=== PATIENT | female | born 1995 | race Hispanic/Latino ===

== ENCOUNTER 2020-04-12 | Emergency (ER) | payer SELFPAY ==
--- NOTE | 2020-04-12 12:38 | ER ---
Nurse's Notes [facility] Name: Kira Askew Age: 25 yrs Sex: Female : 1995 Arrival Date: 04/12/2020 Time: 11:50 Bed 23 Private MD: Diagnosis: Disorder of teeth and supporting structures, unspecified Presentation: 04/12 12:01 Chief complaint: Patient states: R jaw and ear pain since last night. Radiates into R ll1 head. No fever. Coronavirus screen: Client denies travel out of the [place] in the last 14 days. At this time, the client does not indicate any symptoms associated with coronavirus-19. Ebola Screen: Patient denies travel to an Ebola-affected area in the 21 days before illness onset. Initial Sepsis Screen: Does the patient meet any 2 criteria? No. Patient's initial sepsis screen is negative. Does the patient have a suspected source of infection? No. Patient's initial sepsis screen is negative. Risk Assessment: Do you want to hurt yourself or someone else? Patient reports no desire to harm self or others. Onset of symptoms was April 11, 2020. 12:01 Method Of Arrival: Ambulatory ll1 12:01 Acuity: MAYLIN 4 ll1 Historical: - Allergies: 12:01 Ceclor; ll1 - PMHx: 12:01 Asthma; ll1 - PSHx: 12:01 Appendectomy; ll1 - Immunization history:: Flu vaccine is not up to date. - Social history:: Smoking status: Patient denies any tobacco usage or history of. Screenin:06 Abuse screen: Denies threats or abuse. Denies injuries from another. Nutritional sv screening: No deficits noted. Tuberculosis screening: No symptoms or risk factors identified. Fall Risk None identified. Assessment: 12:15 General: Appears in no apparent distress. comfortable, well developed, Behavior is sv calm, cooperative, appropriate for age. Pain: Complains of pain in right ear Pain currently is 10 out of 10 on a pain scale. Neuro: Level of Consciousness is awake, alert, obeys commands, Oriented to person, place, time, situation, Moves all extremities. Full function Gait is steady. Respiratory: Respiratory effort is even, unlabored, Respiratory pattern is regular, symmetrical. Vital Signs: 12:01 BP 134 / 95; Pulse 84; Resp 17; Temp 98.4; Pulse Ox 99% ; Weight 99.79 kg; Height 4 ft. ll1 11 in. (149.86 cm); Pain 10/10; 12:01 Body Mass Index 44.43 (99.79 kg, 149.86 cm) ll1 ED Course: 11:50 Patient arrived in ED. as 12:03 Triage completed. ll1 12:03 Arm band placed on Patient placed in an exam room, on a stretcher. ll1 12:05 Sommer Hassan RN is Primary Nurse. sv 12:06 Jasmeet Samano PA is PHCP. cp 12:06 Jasmeet Lara MD is Attending Physician. cp 12:06 Patient has correct armband on for positive identification. Bed in low position. sv 12:06 No provider procedures requiring assistance completed. Patient did not have IV access sv during this emergency room visit. 19:37 Primary Nurse role handed off by Sommer Hassan RN sv Administered Medications: No medications were administered Outcome: 12:37 Discharge ordered by MD. cp 12:50 Discharged to home ambulatory. sv 12:50 Condition: stable 12:50 Discharge instructions given to patient, Instructed on discharge instructions, follow up and referral plans. medication usage, Demonstrated understanding of instructions, follow-up care, medications, Prescriptions given X 3. 12:51 Patient left the ED. sv Signatures: Sommer Hassan, RN RN Conchita Garcia as Jasmeet Samano PA PA cp Lewis, Lynsay, RN RN ll1
--- NOTE | 2020-04-12 12:38 | EDPHYS ---
Physician Documentation [facility] Name: Kira Askew Age: 25 yrs Sex: Female : 1995 Arrival Date: 04/12/2020 Time: 11:50 Bed 23 Private MD: ED Physician Jasmeet Lara HPI: 04/12 12:30 This 25 yrs old Female presents to ER via Ambulatory with complaints of Ear cp Pain. 12:30 The patient presents with pain, that is acute, tenderness. The complaints affect the cp right ear. Onset: The symptoms/episode began/occurred last night. Associated signs and symptoms: Pertinent positives: right ear and right lower back tooth pain, Pertinent negatives: fever, rhinorrhea, sinus trouble, vomiting. Severity of symptoms: in the emergency department the symptoms are unchanged despite home interventions. Historical: - Allergies: 12: Ceclor; ll1 - PMHx: 12:01 Asthma; ll1 - PSHx: 12:01 Appendectomy; ll1 - Immunization history:: Flu vaccine is not up to date. - Social history:: Smoking status: Patient denies any tobacco usage or history of. ROS: 12:32 Eyes: Negative for injury, pain, redness, and discharge. cp 12:32 Constitutional: Negative for body aches, chills, fever, poor PO intake. 12:32 ENT: Positive for dental pain, ear pain, right lower jaw pain, Negative for drainage from ear(s), sinus congestion, sinus pain, sore throat, difficulty swallowing, difficulty handling secretions. 12:32 Respiratory: Negative for cough, shortness of breath, wheezing. 12:32 Abdomen/GI: Negative for abdominal pain, nausea, vomiting, and diarrhea. 12:32 Neuro: Positive for headache, of the right side of head, Negative for altered mental status, weakness. 12:32 All other systems are negative. Exam: 12:34 Head/Face: Normocephalic, atraumatic. cp 12:34 Constitutional: The patient appears in no acute distress, alert, awake, non-toxic, well developed, well nourished. 12:34 Eyes: Periorbital structures: appear normal, Conjunctiva: normal, no exudate, no injection, Lids and lashes: appear normal, bilaterally. 12:34 ENT: External ear(s): pain with movement, that is mild, of the pinna of right ear, Ear canal(s): are normal, clear, TM's: dullness, bilaterally, Nose: is normal, Mouth: Lips: moist, Oral mucosa: pink and intact, moist, Posterior pharynx: Airway: no evidence of obstruction, patent, Dental exam: abscess, is not appreciated, fractured teeth are noted, specifically the lower right third molar (#32), pain, that is moderate, specifically in the lower right third molar (#32), Voice: is normal. 12:34 Neck: ROM/movement: is normal, is supple, without pain, no range of motions limitations, Lymph nodes: no appreciated lymphadenopathy. Vital Signs: 12:01 BP 134 / 95; Pulse 84; Resp 17; Temp 98.4; Pulse Ox 99% ; Weight 99.79 kg; Height 4 ft. ll1 11 in. (149.86 cm); Pain 10/10; 12:01 Body Mass Index 44.43 (99.79 kg, 149.86 cm) ll1 MDM: 12:10 Patient medically screened. cp 12:36 Data reviewed: vital signs, nurses notes, and as a result, I will discharge patient. cp 12:36 Differential diagnosis: otitis media, otitis externa, acute otalgia, cerumen impaction, cp dental abscess, TMJ pain. Counseling: I had a detailed discussion with the patient and/or guardian regarding: the historical points, exam findings, and any diagnostic results supporting the discharge/admit diagnosis, the need for outpatient follow up, for definitive care, a dentist. Administered Medications: No medications were administered Disposition: 04/12/20 12:37 Discharged to Home. Impression: Disorder of teeth and supporting structures, unspecified. - Condition is Stable. - Discharge Instructions: Dental Pain. - Prescriptions for Clindamycin HCl 300 mg Oral Capsule - take 1 capsule by ORAL route every 6 hours for 10 days; 40 capsule. Ibuprofen 800 mg Oral Tablet - take 1 tablet by ORAL route every 8 hours As needed take with food; 30 tablet. Tramadol 50 mg Oral Tablet - take 1 tablet by ORAL route every 8 hours as needed; 12 tablet. - Medication Reconciliation Form, Thank You Letter, Antibiotic Education, Prescription Opioid Use form. - Follow up: Private Physician; When: 2 - 3 days; Reason: Recheck today's complaints. - Problem is new. - Symptoms are unchanged. Addendum: 04/14/2020 11:35 Co-signature as Attending Physician, Jasmeet Lara MD I agree with the assessment and c de leon plan of care. Signatures: Sommer Hassan, RN RN Jasmeet Rollins MD MD cha Page, Corey, PA PA cp Lewis, Lynsay RN RN ll1 Corrections: (The following items were deleted from the chart) 04/12 12:51 12:37 04/12/2020 12:37 Discharged to Home. Impression: Disorder of teeth and supporting sv structures, unspecified. Condition is Stable. Forms are Medication Reconciliation Form, Thank You Letter, Antibiotic Education, Prescription Opioid Use. Follow up: Private Physician; When: 2 - 3 days; Reason: Recheck today's complaints. Problem is new. Symptoms are unchanged. cp
== END 2020-04-12 12:51 | disposition home or self-care (01) ==
CPT/HCPCS: 99282